=== PATIENT | male | born 1965 | race Caucasian/White ===

== ENCOUNTER 2019-08-25 16:43 | Emergency (ER) | payer BC ==
[~2019-08-25] VITALS: Ht 167.6 cm; Wt 65.0 kg
[2019-08-25] MEDS ORDERED: ketorolac trometh inj. 60 MG/2 ML VIAL IM ONE (17:35)
[2019-08-25] MEDS ORDERED: HYDR-4383 PO (18:13)
[2019-08-25 18:22] VITALS: BP 129/64
== END 2019-08-25 18:26 | disposition home or self-care (01) ==
LOC: ER 16:43
DX: S40.011A Contusion of right shoulder, initial encounter (principal); S00.31XA Abrasion of nose, initial encounter; F17.200 Nicotine dependence, unspecified, uncomplicated; Z98.890 Other specified postprocedural states; W13.2XXA Fall from, out of or through roof, initial encounter; Y93.89 Activity, other specified; Y92.89 Other specified places as the place of occurrence of the external cause; Y99.8 Other external cause status
CPT/HCPCS: 70450; 72125; 73030; 96372; 99285; J1885